=== PATIENT | female | born 1980 | race Caucasian/White ===

== ENCOUNTER 2018-03-28 06:24 | Day surgery (SDC) | payer OTHER ==
[2018-03-28] MEDS: BUPIVACAINE 0.25% (MPF) 30 ML INJ INJ
[~2018-03-28 06:24] MED LIST: SOD CHLORIDE 0.9% 1,000 ML IV
[2018-03-28] MEDS ORDERED: CEFAZOLIN 1 GM INJ (08:40)
[2018-03-28] MEDS ORDERED: MIDAZOLAM 1 MG/ML 2 ML INJ (08:40)
[2018-03-28] MEDS ORDERED: PROPOFOL 20 ML (08:40)
[2018-03-28] MEDS ORDERED: FENTAnyl 50 MCG/ML VIAL ×2 (08:40→09:32)
[2018-03-28] MEDS ORDERED: BUPIVACAINE 0.25% (MPF) 30 ML INJ (09:08)
[2018-03-28] MEDS ORDERED: ONDANSETRON 4 MG INJ IV (09:30)
[2018-03-28] MEDS ORDERED: OXYCODONE/ACETAMINOPHEN (5/325) TAB PO (09:30)
[2018-03-28] MEDS ORDERED: DIPHENHYDRAMINE 50 MG INJ IV (09:30)
[2018-03-28] MEDS ORDERED: EPHEDrine SULFATE 50 MG/5 ML SYG IV (09:30)
[2018-03-28] MEDS ORDERED: MEPERIDINE 25 MG INJ IV (09:30)
[2018-03-28] MEDS ORDERED: HYDROmorphONE 1 MG/5 ML IV SYRINGE IV (09:30)
[2018-03-28] MEDS ORDERED: FENTAnyl 50 MCG/ML VIAL IV ×2 (09:30)
[2018-03-28] MEDS ORDERED: METOCLOPRAMIDE 10 MG INJ (09:35)
[2018-03-28] MEDS ORDERED: KETOROLAC 30 MG INJ (09:35)
[2018-03-28] MEDS ORDERED: DEXAMETHASONE 4 MG/ML 1 ML INJ (09:35)
[2018-03-28] MEDS ORDERED: CLINDAMYCIN 600 MG/D5W (PMX) 50 ML IVPB (09:35)
[2018-03-28] MEDS ORDERED: ONDANSETRON 4 MG INJ (09:35)
[2018-03-28] MEDS: METOCLOPRAMIDE 10 MG INJ IV (10:01)
[2018-03-28] MEDS: HYDROmorphONE 1 MG/5 ML IV SYRINGE IV ×2 (10:01→10:25)
[2018-03-28] MEDS ORDERED: HYDROCODONE/APAP (5/325) TAB PO (11:00)
== END 2018-03-28 12:30 | disposition home or self-care (01) ==
LOC: SDS 06:24
DX: D17.1 Benign lipomatous neoplasm of skin and subcutaneous tissue of trunk (principal)
CPT/HCPCS: 14001; 84703; 88307